=== PATIENT | male | born 1985 | race Caucasian/White ===

== ENCOUNTER 2017-03-09 00:50 | Emergency (ER) | payer MEDICAID ==
[~2017-03-09 00:50] MED LIST: CLEOCIN PO; ELIMITE60 GM TOP; IBUPROFEN PO; KEFLEX500 MG PO; NABUMETONE PO; NO MEDICATIONS; NORCO 5/325 TAB1 TAB PO; PENICILLIN; PENICILLIN PO; PHENERGAN25 MG PO; PRILOSEC20 M1 PO; SUDAFED PO; VIBRAMYCIN100 M1 PO; ZITHROMAX PO; ZOFRAN ODT4 MG/UDTAB PO
== END 2017-03-09 01:35 | disposition home or self-care (01) ==
LOC: SED 00:50
DX: S20.319A Abrasion of unspecified front wall of thorax, initial encounter (principal); S40.819A Abrasion of unspecified upper arm, initial encounter; F15.10 Other stimulant abuse, uncomplicated; F17.210 Nicotine dependence, cigarettes, uncomplicated; Z88.5 Allergy status to narcotic agent; X58.XXXA Exposure to other specified factors, initial encounter; Y92.9 Unspecified place or not applicable
CPT/HCPCS: 99282

== ENCOUNTER 2017-03-17 20:26 | Emergency (ER) | payer MEDICAID | END 2017-03-17 22:10 | disposition left against medical advice (07) | LOC: CED 20:26 | DX: Z53.21 Procedure and treatment not carried out due to patient leaving prior to being seen by health care provider (principal) ==

== ENCOUNTER 2017-05-28 10:24 | Emergency (ER) | payer MEDICAID | END 2017-05-28 11:15 | disposition left against medical advice (07) | LOC: SED 10:24 | DX: R21 Rash and other nonspecific skin eruption (principal); F17.200 Nicotine dependence, unspecified, uncomplicated; Z88.5 Allergy status to narcotic agent | CPT/HCPCS: 99282 ==

== ENCOUNTER 2017-06-02 20:01 | Emergency (ER) | payer MEDICAID ==
[~2017-06-02] VITALS: Ht 180.3 cm; Wt 72.6 kg
== END 2017-06-02 20:53 | disposition home or self-care (01) ==
LOC: CED 20:01 → CFTX 20:01
DX: S60.512A Abrasion of left hand, initial encounter (principal); Z88.5 Allergy status to narcotic agent; F17.210 Nicotine dependence, cigarettes, uncomplicated; F11.10 Opioid abuse, uncomplicated; X58.XXXA Exposure to other specified factors, initial encounter
CPT/HCPCS: 99283